=== PATIENT | female | born 1995 | race Caucasian/White ===

== ENCOUNTER 2016-04-16 21:20 | Outpatient (CLI) | payer MEDICAID ==
[~2016-04-16] VITALS: Ht 157.5 cm; Wt 90.5 kg
[~2016-04-16 21:20] MED LIST: FERR256T PO; PREN-46 PO
[2016-04-16 22:12] VITALS: Ht 157.5 cm; Wt 90.5 kg
[2016-04-16 22:14] VITALS: BP 133/85; RESP 16
[2016-04-16 22:19] LABS: ADD UMIC YES; URINE BILIRUBIN (Dip) NEGATIVE (NEGATIVE); URINE BLOOD (Dip) TRACE (NEGATIVE); URINE COLOR LT. YELLOW (YELLOW); URINE GLUCOSE (Dip) NEGATIVE (NEGATIVE); URINE KETONES (Dip) NEGATIVE (NEGATIVE); URINE LEUKOCYTE ESTERASE (Dip) 3+ (NEGATIVE); URINE NITRITE (Dip) NEGATIVE (NEGATIVE); URINE TOTAL PROTEIN (Dip) NEGATIVE (NEGATIVE); URINE UROBILINOGEN (Dip) 0.2 E.U./dL (0.1-1.0)
[2016-04-16 23:37] LABS: BACTERIA,URINE MODERATE; SQUAMOUS EPITHELIAL CELL,UR MODERATE
--- NOTE | 2016-04-16 23:49 | RADRPT ---
PROCEDURE: OB ultrasound for biophysical profile CLINICAL INDICATION: Labor. TECHNIQUE: Multiple sonographic images of the gravid uterus performed. The images were reviewed on a PACS workstation. COMPARISON: 03/24/2016 FINDINGS: A single live intrauterine is identified with heart rate of 143 bpm. Fet us is in a breech presentation. Placenta is located anterior. Biophysical profile: breathing movement = 2/2 tone = 2/2 motion = 2/2 KATHERINE = 2/2 KATHERINE = 10.6 cm. IMPRESSION: 1. Single live intrauterine gestation. 2. Biophysical profile = 8/8. 3. KATHERINE = 10.6 cm. 4. Breech presentation. RPTAT: HMVK .Daron Madrgial MD, Date Time Electronically viewed and signed by .Daron Madrigal MD, MD on 04/16/2016 23:49 .K/
--- NOTE | 2016-04-17 00:05 | QN ---
Documentation Comment 21-year-old with IUP at 37 weeks and care with [facility] [place] presents with complaint of increased vaginal discharge questionable leaking of fluid for the last 3 days. She had a history of prior and was a scheduled for repeat at 39 weeks. She denies any abdominal pain or contractions. She also is complaining of decreased movement. She denies any vaginal bleeding or contractions. Physical examination: General appearance: A&O x3, in NAD Abdomen: Soft, gravid, no tenderness, no rebound tenderness no guarding no rigidity Fundal height consistent with gestational age NST: Category 1, no contraction the monitor seen Speculum examination: No leaking of fluid noted. Coccyx she is a greenish vaginal discharge consistent with Rossana vaginitis noted Nitrazine: Negative ROAM tests: Negative KATHERINE: 10.6 BPP:09/30 PROCEDURE: OB ultrasound for biophysical profile CLINICAL INDICATION: Labor. TECHNIQUE: Multiple sonographic images of the gravid uterus performed. The images were reviewed on a PACS workstation. COMPARISON: 03/24/2016 FINDINGS: A single live intrauterine is identified with heart rate of 143 bpm. Fetus is in a breech presentation. Placenta is located anterior. Biophysical profile: breathing movement = 2/2 tone = 2/2 motion = 2/2 KATHERINE = 2/2 KATHERINE = 10.6 cm. IMPRESSION: 1. Single live intrauterine gestation. 2. Biophysical profile = 8/8. 3. KATHERINE = 10.6 cm. 4. Breech presentation. RPTAT: HMVK Assessment: IUP at 37 weeks Increase vaginal discharge,, exam consistent with candidal vaginitis Patient was advised to take [id number] Monistat for the next 7 days No clear evidence of PROM Decreased movement, testing reassuring Breech presentation. History of 1. Scheduled for repeat at 39 weeks Patient was advised about strict kick counts and labor precautions and follow-up with her OB clinic in the next couple days and RTC triage as needed any other concerns Patient verbalized understanding THEE ESTEVEZ MD Apr 17, 2016 00:05
--- NOTE | 2016-04-17 00:17 | TRIAGE ---
OB Triage Datetime Report Generated by CPN: 04/17/2016 00:16 Datetime: 04/16/2016 23:57 Labor Evaluation Frequency: NONE Pattern: Normal: <= 5 Contractions in 10 Minutes Heart Rate FHR Baseline Rate: 135 FHR Baseline Changes: No Baseline Change Datetime: 04/16/2016 23:00 Labor Evaluation Frequency: NONE Pattern: Normal: <= 5 Contractions in 10 Minutes Heart Rate FHR Baseline Rate: 150 FHR Baseline Changes: No Baseline Change Variability: Moderate 6-25 bpm Datetime: 04/16/2016 22:09 Vaginal Exam Dilatation (cms): 0.0 Effacement (%): 0 Station: -4 Exam By: DR. ESTEVEZ Vaginal Bleeding: None Cervix, Consistency: Firm Cervix, Position: Posterior Datetime: 04/16/2016 22:00 Labor Evaluation Frequency: IRRITABILITY Monitor Mode: External Pattern: Normal: <= 5 Contractions in 10 Minutes Heart Rate FHR Baseline Rate: 135 Monitor Mode: External US FHR Baseline Changes: No Baseline Change Variability: Moderate 6-25 bpm Category: Category I Datetime: 04/16/2016 21:42 Stage of : OB Triage Datetime: 04/16/2016 21:40 Stage of : OB Triage Datetime: 04/16/2016 21:31 Monitor Mode: External Monitor Mode: External US Datetime: 04/16/2016 21:30 Assessment Type: Triage Maternal Assessment Level of Consciousness: Fully Conscious DTR's/Clonus: DTRs 2+; No Clonus Headache: Denies Blurred Vision: No Respiratory Effort: Unlabored; Regular Rhythm; Equal Expansion Breath Sounds, Left: Clear and Equal Breath Sounds, Right: Clear and Equal Nausea/Vomiting: Denies RUQ Epigastric Pain: Denies Lower Extremities Edema: None Upper Extremities Edema: None Facial Edema: None Fall Risk Assessment History of Falling: (0) No Secondary Diagnosis: (0) No Ambulatory Aid: (0) Bedrest/Nurse Assist IV Therapy: (0) No Gait: (0) Normal/Bedrest/Immobile Mental Status: (0) Oriented to Own Ability Fall Score: 0 Fall Risk Score Definition: No Risk: No action required Comment: PT. APPEARED C/O LEAKING X3DAYS, DENIES RECENT INTERCOURSE, ADMITS TO DECREASED MOV EMENT OVER THE LAST 2 DAYS. WHEN ABD PALPATED, KICK FELT Datetime: 04/16/2016 21:24 EGA: 37.0 Datetime: 04/16/2016 21:15 Time of Arrival: 04/16/2016 21:15 Arrived By: Ambulatory Arrived From: Home Chief Complaint: LEAKING AND LOWER ABD PAIN Movement: Decreased Contractions: Denies/Absent Rupture of Membranes: Unsure Vaginal Discharge: Present Recent Sexual Intercouse: Denies Abdominal Trauma: Not Applicable Patient Complaints: Other Time Provider Notified: 04/17/2016 21:50 Provider Notified: ZENAIDA Initial Plan: KEERTHI FREEMAN, CALL OB
== END 2016-04-17 00:08 | disposition home or self-care (01) ==
LOC: OBT 21:20 → L-D 21:21 → OBT 04-17 00:08
PROVIDERS: ATTEND Obstetrics & Gynecology
DX: O36.8130 Decreased fetal movements, third trimester, not applicable or unspecified (principal); O98.813 Other maternal infectious and parasitic diseases complicating pregnancy, third trimester; B37.3 Candidiasis of vulva and vagina; O32.1XX0 Maternal care for breech presentation, not applicable or unspecified; Z3A.37 37 weeks gestation of pregnancy
CPT/HCPCS: 76818; 81001; 84112; Z7500; 81003; G0463

== ENCOUNTER 2016-05-09 10:20 | Inpatient (IN) | payer MEDICAID ==
[~2016-05-09] VITALS: Ht 157.5 cm; Wt 92.3 kg
[2016-05-09 10:58] VITALS: Ht 157.5 cm; Wt 92.3 kg
[2016-05-09 10:59] VITALS: BP 115/73; PULSE 96; RESP 18
[2016-05-09] MEDS: LACTATED RINGER'S 1,000 ML IV SCH ×2 (11:06→12:30)
[2016-05-09 11:30] LABS: ADD SCAN DIFF NO
[2016-05-09] MEDS ORDERED: CARBOPROST 250 MCG INJ IM PRN ×2 (11:30→16:00)
[2016-05-09] MEDS ORDERED: METHYLERGONOVINE 0.2 MG INJ IM PRN ×2 (11:30→16:00)
[2016-05-09] MEDS ORDERED: OXYTOCIN 30 UNITS/LR 500 ML IV PRN ×2 (11:30→16:00)
[2016-05-09] MEDS ORDERED: OXYTOCIN 30 UNITS/LR 500 ML IV SCH (11:30)
[2016-05-09] MEDS ORDERED: MISOPROSTOL 200 MCG TAB PR PRN ×2 (11:30→16:00)
[2016-05-09] MEDS ORDERED: CLINDAMYCIN 900 MG/D5W (PMX) 50 ML IV SCH (11:30)
[2016-05-09 11:38] LABS: BASOPHILS % 0.1 % (0.0-2.0); EOSINOPHILS % 0.4 % (0.0-7.0); HEMATOCRIT 35.1 % (37.0-47.0); HEMOGLOBIN 11.8 g/dl (12.0-16.0); LYMPHOCYTES # 2.3 10^3/ul (0.8-2.9); LYMPHOCYTES % 31.5 % (15.0-51.0); MEAN CORPUSCULAR HEMOGLOBIN 30.5 pg (29.0-33.0); MEAN CORPUSCULAR HGB CONC 33.6 g/dl (32.0-37.0); MEAN CORPUSCULAR VOLUME 90.7 fl (82.0-101.0); MEAN PLATELET VOLUME 11.2 fl (7.4-10.4); MONOCYTE # 0.7 10^3/ul (0.3-0.9); MONOCYTES % 9.9 % (0.0-11.0); NEUTROPHIL # 4.1 10^3/ul (1.6-7.5); NEUTROPHILS % 57.1 % (39.0-77.0); PLATELET COUNT 201 10^3/UL (140-415); RED BLOOD COUNT 3.87 10^6/ul (4.20-5.40); RED CELL DISTRIBUTION WIDTH 13.2 % (11.5-14.5); WHITE BLOOD COUNT 7.2 10^3/ul (4.8-10.8)
[2016-05-09 11:48] LABS: INR 0.94; PROTIME 12.6 Sec (12.2-14.2)
[2016-05-09 11:49] LABS: PARTIAL THROMBOPLASTIN TIME 28.6 Sec (25.0-35.0)
[2016-05-09] MEDS ORDERED: METOCLOPRAMIDE 10 MG INJ ONE (12:33)
[2016-05-09] MEDS ORDERED: CITRIC ACID/NA CITRATE 30 ML CUP ONE (12:33)
[2016-05-09] MEDS ORDERED: FAMOTIDINE 20 MG INJ ONE (12:33)
[2016-05-09] MEDS ORDERED: morphine SULFATE/PF (10 MG/10 ML) INJ ONE (12:57)
[2016-05-09] MEDS ORDERED: FENTAnyl 50 MCG/ML VIAL ONE (12:58)
[2016-05-09] MEDS ORDERED: PHENYLephrine (100 MCG/ML) 5ML SYG ONE (13:11)
[2016-05-09] MEDS ORDERED: LACTATED RINGER'S 1,000 ML IV ONE (13:28)
[2016-05-09] MEDS ORDERED: CITRIC ACID/NA CITRATE 30 ML CUP PO ONE (13:30)
[2016-05-09] MEDS ORDERED: DIPHENHYDRAMINE 50 MG INJ IV PRN ×2 (13:30→15:00)
[2016-05-09] MEDS ORDERED: METOCLOPRAMIDE 10 MG INJ IV ONE (13:30)
[2016-05-09] MEDS ORDERED: HYDROmorphONE (0.2 MG/ML) 10ML SYG IV PRN (13:30)
[2016-05-09] MEDS ORDERED: PROCHLORPERAZINE 10 MG INJ IV PRN ×2 (13:30→15:00)
[2016-05-09] MEDS ORDERED: MEPERIDINE 25 MG INJ IV PRN (13:30)
[2016-05-09] MEDS ORDERED: FENTAnyl 50 MCG/ML VIAL IV PRN (13:30)
[2016-05-09] MEDS ORDERED: KETOROLAC 30 MG INJ IV PRN (13:30)
[2016-05-09] MEDS ORDERED: ONDANSETRON 4 MG INJ IV PRN ×2 (13:30→15:00)
[2016-05-09] MEDS ORDERED: FAMOTIDINE 20 MG INJ IV ONE (13:30)
[2016-05-09] MEDS ORDERED: OXYTOCIN 30 UNITS/LR 500 ML IV ONE (13:58)
--- NOTE | 2016-05-09 14:57 | OPR ---
DATE OF OPERATION: 05/09/2016 PREOPERATIVE DIAGNOSES: 1. Intrauterine at 39 weeks' gestation. 2. History of previous section. 3. Early labor. POSTOPERATIVE DIAGNOSES: 1. Intrauterine at 39 weeks' gestation. 2. History of previous section. 3. Early labor. OPERATION PERFORMED: Repeat transverse low cervical section. SURGEON: Jelly Miranda MD SOFTWARE REQUIREMENTS ENGINEER: David Shin MD ANESTHESIA: Spinal. ANESTHESIOLOGIST: Dr. Nix. FINDINGS: Live baby boy, with Apgars of 9 and 9. Baby weighed 3760 grams. DETAILS OF THE PROCEDURE: Under satisfactory spinal anesthesia, the patient was prepped and draped and placed in the supine position, tilted to the left. A Pfannenstiel incision was made, carried th rough the subcutaneous tissue. Bleeders were brought under control with electrocautery. Fascia was incised to the length of the incision. Rectus muscle was divided in the midline. Peritoneum was e xposed, entered through a transverse incision. Exploration of abdomen, a gravid uterus, normal-appe aring tubes and ovaries. Some scar between the right round ligament and anterior abdominal wall, wh ich was taken down with sharp dissection. Suture material was used, #0 chromic catgut. A bladder f lap was developed. A transverse incision was made in the lower segment of the uterus. Amniotic sac ruptured. Clear amniotic fluid noted. A live baby boy was delivered from an unengaged vertex. Na armando oropharyngeal suction was performed and the baby was handed to the team for immediate a ttention. The patient received 20 units of Pitocin. Placenta delivered manually intact. Uterine c avity was cleaned with a wet sponge and drainage established. Uterus was closed in 2 layers using M onocryl #1 in continuous fashion. Peritoneal cavity was irrigated with warm saline. Sponge, needle and instrument were reported to be correct. Abdominal peritoneum was closed with 2-0 chromic catgu t continuously. Rectus muscle was approximated with a few interrupted 2-0 chromic catgut. Fascia w as closed with #1 PDS in a continuous fashion. Subcutaneous tissue was approximated with 2-0 chromi c catgut and the skin was closed with celso. Estimated blood loss was 600 mL. Urine bag containe d 300 mL of clear urine. Patient tolerated procedure well and was transferred to the recovery room in good condition. Dictated By: JELLY MIRANDA MD HF/NTS Conf#: [id number] DID#: [id number]
[2016-05-09] MEDS ORDERED: ZOLPIDEM 5 MG TAB PO PRN (15:00)
[2016-05-09] MEDS ORDERED: HYDROmorphONE 1 MG/ML SYG IV PRN ×2 (15:00)
[2016-05-09] MEDS ORDERED: NALOXONE (0.4 MG/ML) INJ IV PRN (15:00)
--- NOTE | 2016-05-09 15:05 | HP ---
DATE OF ADMISSION: 05/09/2016 HISTORY OF PRESENT ILLNESS: This is a 21-year-old female G3, P1, T1, PT 0, SAB 0, IAB 1, L /1 admitted to [facility] at 39 weeks' gestation with a history of previous C-sect ion, being prepared to undergo a repeat transverse low cervical section. This patient has been under the care of the [facility]. Her course was not complicated with ge stational diabetes, -induced hypertension, or any other serious medical or surgical conditi on. GYNECOLOGIC HISTORY: Menarche at age 9, regular period, 28 to 29 days, lasting 4 or 5 days. Histo ry of total of 3 pregnancies including the present , 1 spontaneous and 1 previous section. PAST MEDICAL HISTORY: No other hospitalization has been recorded in the patient's . ALLERGIES: DENIES ALLERGY TO ANY KNOWN MEDICATION. SOCIAL HABITS: Denies smoking or drinking. FAMILY HISTORY: Unremarkable. REVIEW OF SYSTEMS: Within normal. PHYSICAL EXAMINATION: VITAL SIGNS: 5 feet 2, 203 pounds, total weight gain during the , 61 pounds Temperature 9 8.7, heart rate 91, respiration 18, blood pressure 130/83. HEAD, EARS, NOSE AND THROAT: Negative. NECK: Supple. No thyromegaly. LUNGS: Clear to P and A. HEART: Normal sinus rhythm, no murmur. BREASTS: Status compatible with state of the . No abnormal palpable mass. No nipple retr action or discharge. No axillary adenopathy and no supraclavicular adenopathy. ABDOMEN: Measures approximately 37 cm from symphysis pubis. heart rate in 150s, category 1. Occasional contractions less than 4 to 5 in 1 hour. PELVIC: Deferred. EXTREMITIES: No edema, no varicosities. IMPRESSION: 1. Intrauterine at 39 weeks' gestation. 2. History of previous section undergoing a repeat . The patient is aware of the complication of the surgery, including bowel or bladder injury, infection, hemorrhage and hematoma, and she is willing to go ahead with this procedure. Dictated By: JELLY MIRANDA MD HF/NTS Conf#: [id number] DID#: [id number]
[2016-05-09] MEDS ORDERED: OXYCODONE/ACETAMINOPHEN (5/325) TAB PO PRN (16:00)
[2016-05-09] MEDS ORDERED: ACETAMINOPHEN/CODEINE #3 TAB PO PRN (16:00)
[2016-05-09] MEDS ORDERED: CEFAZOLIN 1 GM/50 ML (PMX) 50 ML IVPB SCH ×2 (16:00→16:30)
[2016-05-09 17:00] VITALS: BP 118/77; PULSE 95; RESP 20
[2016-05-09] MEDS: OXYTOCIN 30 UNITS/LR 500 ML IV SCH ×2 (17:16→20:46)
[2016-05-09] MEDS ORDERED: CLINDAMYCIN 900 MG/D5W (PMX) 50 ML IVPB ONE ×2 (17:30→20:00)
[2016-05-09 19:45] VITALS: BP 114/71; PULSE 102; RESP 18
[2016-05-10 00:30] VITALS: BP 102/62; RESP 18
[2016-05-10] MEDS: OXYTOCIN 30 UNITS/LR 500 ML IV SCH ×2 (01:33→03:56)
[2016-05-10 04:00] VITALS: BP 112/78; RESP 18
[2016-05-10] MEDS: KETOROLAC 30 MG INJ IV PRN ×2 (05:02→11:57)
[2016-05-10] MEDS: LACTATED RINGER'S 1,000 ML IV SCH (05:46)
[2016-05-10 07:42] LABS: ADD SCAN DIFF NO
[2016-05-10 07:46] LABS: BASOPHILS % 0.2 % (0.0-2.0); EOSINOPHILS # 0.1 10^3/ul (0.0-0.5); EOSINOPHILS % 0.6 % (0.0-7.0); HEMATOCRIT 31.7 % (37.0-47.0); HEMOGLOBIN 10.4 g/dl (12.0-16.0); LYMPHOCYTES % 18.3 % (15.0-51.0); MEAN CORPUSCULAR HGB CONC 32.8 g/dl (32.0-37.0); MEAN CORPUSCULAR VOLUME 91.4 fl (82.0-101.0); MEAN PLATELET VOLUME 11.3 fl (7.4-10.4); MONOCYTES % 9.5 % (0.0-11.0); NEUTROPHIL # 7.6 10^3/ul (1.6-7.5); NEUTROPHILS % 70.9 % (39.0-77.0); PLATELET COUNT 165 10^3/UL (140-415); RED BLOOD COUNT 3.47 10^6/ul (4.20-5.40); WHITE BLOOD COUNT 10.7 10^3/ul (4.8-10.8)
[2016-05-10 08:00] VITALS: BP 102/58; PULSE 89; RESP 18
[2016-05-10] MEDS ORDERED: INFLUENZA VIRUS VACCINE 0.5 ML SYG IM* ONE (09:00)
[2016-05-10] MEDS: SENNA/DOCUSATE NA (8.6MG/50MG) TAB PO SCH ×2 (09:25→21:21)
--- NOTE | 2016-05-10 09:39 | PN ---
Date/Time of Note Date/Time of Note DATE: 05/10/16 TIME: 09:36 OB Subjective Subjective Subjective Post day 1 VS stable, afebrile, abdomen soft incision dry bowel sounds present extremities normal IV discontinue ambulation recommended Laboratory Tests Test 05/09/16 10:50 05/10/16 06:15 Activated Partial Thromboplast Time 28.6Sec Basophils # 0.010^3/ul 0.010^3/ul Basophils % 0.1% 0.2% Eosinophils # 0.010^3/ul 0.110^3/ul Eosinophils % 0.4% 0.6% Hematocrit 35.1% 31.7% Hemoglobin 11.8g/dl 10.4g/dl INR International Normalized Ratio 0.94 Lymphocytes # 2.310^3/ul 2.010^3/ul Lymphocytes % 31.5% 18.3% Mean Corpuscular Hemoglobin 30.5pg 30.0pg Mean Corpuscular Hemoglobin Concent 33.6g/dl 32.8g/dl Mean Corpuscular Volume 90.7fl 91.4fl Mean Platelet Volume 11.2fl 11.3fl Monocytes # 0.710^3/ul 1.010^3/ul Monocytes % 9.9% 9.5% Neutrophils # 4.110^3/ul 7.610^3/ul Neutrophils % 57.1% 70.9% Nucleated Red Blood Cells # 0.010^3/ul 0.010^3/ul Nucleated Red Blood Cells % 0.0/100WBC 0.0/100WBC Platelet Count 35917^3/UL 56758^3/UL Prothrombin Time 12.6Sec Prothrombin Time Ratio 1.0 Rapid Plasma Reagin NONREACTIVE Red Blood Count 3.8710^6/ul 3.4710^6/ul Red Cell Distribution Width 13.2% 13.0% White Blood Count 7.210^3/ul 10.710^3/ul Current Medications Medications (Trade) Dose Ordered Sig/Arcadio Route PRN Reason Start Time Stop Time Status Last Admin Dose Admin Lactated Ringer's 1,000 ml @ 125 mls/hr Q8H IV 05/09/16 11:06 05/10/16 05:46 Clindamycin HCl/ Dextrose 50 ml @ 50 mls/hr ONCE IV 05/09/16 11:30 05/09/16 16:07 DC Oxytocin/Lactated Ringer's 500 ml @ 125 mls/hr ONCE IV 05/09/16 11:30 05/09/16 16:08 DC 05/09/16 15:17 Oxytocin/Lactated Ringer's 500 ml @ 0 mls/hr ONCE PRN IV For Hemorrhage Management 05/09/16 11:30 05/09/16 16:07 DC Methylergonovine Maleate (Methergine) 0.2 mg ONCE PRN IM VAGINAL BLEEDING 05/09/16 11:30 05/09/16 16:08 DC Carboprost Tromethamine (Hemabate) 250 mcg ONCE PRN IM VAGINAL BLEEDING 05/09/16 11:30 05/09/16 16:07 DC Misoprostol (Cytotec) 1,000 mcg ONCE PRN GA VAGINAL BLEEDING 05/09/16 11:30 05/09/16 16:08 DC Citric Acid/ Sodium Citrate (Bicitra) 30 ml STK-MED ONCE .ROUTE 05/09/16 12:33 05/09/16 12:34 DC Famotidine (Pepcid Iv) 20 mg STK-MED ONCE .ROUTE 05/09/16 12:33 05/09/16 12:34 DC Metoclopramide HCl (Reglan) 10 mg STK-MED ONCE .ROUTE 05/09/16 12:33 05/09/16 12:34 DC Morphine Sulfate (Duramorph) 10 mg STK-MED ONCE .ROUTE 05/09/16 12:57 05/09/16 12:58 DC Fentanyl (Sublimaze) 100 mcg STK-MED ONCE .ROUTE 05/09/16 12:58 05/09/16 12:59 DC Phenylephrine HCl (Dilip-Synephrine Inj Syg) 500 mcg STK-MED ONCE .ROUTE 05/09/16 13:11 05/09/16 13:12 DC Hydromorphone HCl (Dilaudid (Rec)) 0.4 mg PACU ORDER PRN IV PAIN 05/09/16 13:30 05/09/16 16:08 DC Fentanyl (Sublimaze) 25 mcg PACU ORDER PRN IV PAIN 05/09/16 13:30 05/09/16 16:08 DC Ketorolac Tromethamine (Toradol) 30 mg PACU ORDER PRN IV PAIN 05/09/16 13:30 05/09/16 16:08 DC Ondansetron HCl (Zofran Inj) 4 mg PACU ORDER PRN IV NAUSEA AND/OR VOMITING 05/09/16 13:30 05/09/16 16:08 DC Prochlorperazine (Compazine Inj) 5 mg PACU ORDER PRN IV NAUSEA AND/OR VOMITING 05/09/16 13:30 05/09/16 16:08 DC Meperidine HCl (Demerol) 25 mg PACU ORDER PRN IV POST-OP RIGORS 05/09/16 13:30 05/09/16 16:08 DC Diphenhydramine HCl 25 mg 25 mg PACU ORDER PRN IV PRURITUS 05/09/16 13:30 05/09/16 16:07 DC 05/09/16 15:15 Lactated Ringer's (Lr) 1,000 ml @ 1,000 mls/hr Q1H ONCE IV 05/09/16 13:28 05/09/16 14:27 DC Citric Acid/ Sodium Citrate (Bicitra) 30 ml pre-procedure ONCE PO 05/09/16 13:30 05/09/16 13:31 DC 05/09/16 12:44 Famotidine (Pepcid Iv) 20 mg pre-procedure ONCE IV 05/09/16 13:30 05/09/16 13:31 DC 05/09/16 12:45 Metoclopramide HCl 10 mg 10 mg ONCE ONCE IV 05/09/16 13:30 05/09/16 13:31 DC 05/09/16 12:43 Oxytocin/Lactated Ringer's 500 ml @ ud STK-MED ONCE IV 05/09/16 13:58 05/09/16 13:59 DC Naloxone HCl (Narcan) 0.1 mg Q2M PRN IV FOR RESP RATE 8 OR LESS 05/09/16 15:00 05/10/16 13:07 Ketorolac Tromethamine (Toradol) 30 mg Q6H PRN IV PAIN 05/09/16 15:00 05/10/16 13:07 05/10/16 05:02 Hydromorphone HCl (Dilaudid) 0.2 mg Q3H PRN IV PAIN LEVEL 1-5 05/09/16 15:00 05/10/16 13:07 Hydromorphone HCl (Dilaudid) 0.4 mg Q3H PRN IV PAIN LEVEL 6-10 05/09/16 15:00 05/10/16 13:07 Diphenhydramine HCl (Benadryl) 25 mg Q6H PRN IV ITCHING 05/09/16 15:00 05/10/16 13:07 Ondansetron HCl (Zofran Inj) 4 mg Q6H PRN IV NAUSEA AND/OR VOMITING 05/09/16 15:00 05/10/16 13:07 Prochlorperazine (Compazine Inj) 10 mg ONCE PRN IV NAUSEA AND/OR VOMITING 05/09/16 15:00 05/10/16 13:07 Zolpidem Tartrate (Ambien) 5 mg HS MAY REPEAT X 1 PRN PO INSOMNIA 05/09/16 15:00 05/10/16 13:07 Miscellaneous Information (* Miscellaneous Pharmacy Order) Duramorph: 0.2 mg Spi... GIVEN XX 05/09/16 15:00 05/09/16 16:08 DC Acetaminophen/ Codeine Phosphate (Tylenol No.3) 1 tab Q4H PRN PO PAIN LEVEL 4-6 05/09/16 16:00 Acetaminophen/ Codeine Phosphate (Tylenol No.3) 2 tab Q4H PRN PO PAIN LEVEL 7-10 05/09/16 16:00 Oxycodone/ Acetaminophen (Percocet (5/ 325)) 1 tab Q4H PRN PO PAIN LEVEL 4-6 05/09/16 16:00 Oxycodone/ Acetaminophen (Percocet (5/ 325)) 2 tab Q4H PRN PO PAIN LEVEL 7-10 05/09/16 16:00 Ibuprofen (Motrin) 600 mg Q6 PO 05/10/16 12:00 Simethicone (Mylicon) 160 mg Q8H PRN PO DISTENSION/GAS/BLOATING 05/09/16 16:00 Senna/Docusate Sodium (Senokot-S) 1 tab BID PO 05/10/16 09:00 05/10/16 09:25 Lanolin (Uvq-R-Iplwjo) 1 applic BEDSIDE MEDICATION PRN TOP BEDSIDE FOR SCOTT TO NIPPLES 05/09/16 16:00 Diphtheria/ Tetanus/Acell Pertussis 0.5 ml 0.5 ml ONCE ONCE IM* 05/12/16 09:00 05/12/16 09:01 Oxytocin/Lactated Ringer's 500 ml @ 0 mls/hr ONCE PRN IV For Hemorrhage Management 05/09/16 16:00 Methylergonovine Maleate (Methergine) 0.2 mg ONCE PRN IM VAGINAL BLEEDING 05/09/16 16:00 Carboprost Tromethamine (Hemabate) 250 mcg ONCE PRN IM VAGINAL BLEEDING 05/09/16 16:00 Misoprostol 1000 mcg 1,000 mcg ONCE PRN GA VAGINAL BLEEDING 05/09/16 16:00 Cefazolin Sodium 50 ml @ 100 mls/hr ONCE IVPB 05/09/16 16:00 05/09/16 16:29 Cancel Oxytocin/Lactated Ringer's 500 ml @ 125 mls/hr Q4H IV 05/09/16 15:56 05/10/16 01:33 Cefazolin Sodium 50 ml @ 100 mls/hr ONCE IVPB 05/09/16 16:30 05/09/16 17:21 DC Clindamycin HCl/ Dextrose 50 ml @ 50 mls/hr ONCE ONCE IVPB 05/09/16 17:30 05/09/16 17:55 DC Clindamycin HCl/ Dextrose (Cleocin 900 Mg/ D5W (Pmx)) 50 ml @ 50 mls/hr ONCE ONCE IVPB 05/09/16 20:00 05/09/16 20:59 DC 05/09/16 20:46 Influenza Virus Vaccine (Fluzone) 0.5 ml ONCE ONCE IM* 05/10/16 09:00 05/10/16 09:01 JELLY CARRILLO MD May 10, 2016 09:38
[2016-05-10 11:45] VITALS: BP 108/62; PULSE 80; RESP 18
[2016-05-10] MEDS: IBUPROFEN 600 MG TAB PO SCH ×3 (11:57→23:53)
[2016-05-10 15:58] VITALS: BP 118/68; PULSE 64; RESP 18
[2016-05-10] MEDS: ACETAMINOPHEN/CODEINE #3 TAB PO PRN (17:31)
[2016-05-10 19:35] VITALS: BP 111/84; PULSE 92; RESP 18
[2016-05-10] MEDS: OXYCODONE/ACETAMINOPHEN (5/325) TAB PO PRN (22:45)
[2016-05-11] MEDS: LANOLIN 7 GM TUBE TOP PRN (01:59)
[2016-05-11 03:55] VITALS: BP 100/50; PULSE 95; RESP 18
[2016-05-11] MEDS: IBUPROFEN 600 MG TAB PO SCH ×4 (05:33→23:39)
[2016-05-11 08:15] VITALS: BP 122/77; PULSE 89; RESP 18
[2016-05-11] MEDS: SENNA/DOCUSATE NA (8.6MG/50MG) TAB PO SCH ×2 (09:29→20:52)
--- NOTE | 2016-05-11 10:07 | QN ---
Documentation Comment POD #2 s/p repeat c/s. Doing well w/o complaints. +. T= 98.1, BP 122/77 Incision with celso and is clean, dry and intact. Lochia minimal. Ext 1+ edema. P: continue care with possible d/c tomorrow. DAVID FREY MD May 11, 2016 10:07
[2016-05-11] MEDS: OXYCODONE/ACETAMINOPHEN (5/325) TAB PO PRN (13:40)
[2016-05-11] MEDS ORDERED: NA PHOSPHATE/BIPHOS 133 ML ENEMA PR ONE (14:00)
[2016-05-11 16:14] VITALS: BP 103/56; PULSE 80; RESP 18
[2016-05-11 20:00] VITALS: BP 108/68; PULSE 94; RESP 18
[2016-05-12 04:00] VITALS: BP 108/58; PULSE 91; RESP 20
[2016-05-12] MEDS: IBUPROFEN 600 MG TAB PO SCH ×4 (05:38→23:44)
[2016-05-12 08:20] VITALS: BP 104/57; PULSE 82; RESP 17
[2016-05-12] MEDS ORDERED: DIPHTH/TET/ACEL PERTUSS (ADULT) 0.5 ML VIAL IM* ONE (09:00)
[2016-05-12] MEDS: SENNA/DOCUSATE NA (8.6MG/50MG) TAB PO SCH ×2 (09:35→20:32)
[2016-05-12] MEDS: OXYCODONE/ACETAMINOPHEN (5/325) TAB PO PRN ×2 (09:36→19:43)
--- NOTE | 2016-05-12 12:41 | PN ---
Date/Time of Note Date/Time of Note DATE: 05/12/16 TIME: 12:40 OB Subjective Subjective Subjective Post date 3 Afebrile, abdomen soft, incision dry, lochia normal, had normal bowel movement, extremity normal plan of a.m. discharge discussed with the patient. JELLY MIRANDA MD May 12, 2016 12:41
[2016-05-12] MEDS: ACETAMINOPHEN/CODEINE #3 TAB PO PRN (15:28)
[2016-05-12 16:27] VITALS: BP 107/64; PULSE 81; RESP 16
[2016-05-12 19:59] VITALS: BP 102/64; PULSE 88; RESP 18
[2016-05-13 04:00] VITALS: BP 119/74; PULSE 85; RESP 18
[2016-05-13] MEDS: IBUPROFEN 600 MG TAB PO SCH ×2 (05:50→12:47)
[2016-05-13 08:00] VITALS: BP 108/72; PULSE 80; RESP 18
[2016-05-13] MEDS: SENNA/DOCUSATE NA (8.6MG/50MG) TAB PO SCH (08:34)
[2016-05-13] MEDS: OXYCODONE/ACETAMINOPHEN (5/325) TAB PO PRN (08:34)
[2016-05-13] MEDS: LANOLIN 7 GM TUBE TOP PRN (08:34)
--- NOTE | 2016-05-13 09:59 | PD.PPDC ---
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
--- NOTE | 2016-05-13 10:04 | DS ---
Date/Time of Note Date/Time of Note DATE: 05/13/16 TIME: 10:01 Obstetrical Discharge Record Final Diagnosis Final Diagnosis: Term delivered Section Section: Repeat Condition on Discharge Physical Assessment Last Vitals: 21 years old female admitted to [facility] at 39 weeks gestation with a history of previous underwent a repeat C- section the outcome live baby boy 9 and, patient's postoperative course in the hospital uneventful did not spike temperature or having problem with bowel function or urination on the third postoperative day incision inspected found free of inflammation and infection patient was discharged home with a prescription of analgesic recommended to make appointment with the clinic in 4 days to discontinue celso. Voiding: Yes Bowel Movement: Yes Breast: Soft, non-tender, Filling Fundus: Firm Abdomen and Incision: Dry healing well free of inflammation Calf Tenderness: No Patient Condition: Good JELLY MIRANDA MD May 13, 2016 10:04
[2016-05-13 15:50] VITALS: BP 128/67; PULSE 82; RESP 18
== END 2016-05-13 16:05 | disposition home or self-care (01) | DRG 766 ==
LOC: L-D 10:20 → PP1 16:50
PROVIDERS: ADMIT Obstetrics & Gynecology; ATTEND Obstetrics & Gynecology
PROC: 10D00Z1 Extraction of Products of Conception, Low, Open Approach (ICD-10-PCS; principal; 2016-05-09 12:30)
DX: O34.211 Maternal care for low transverse scar from previous cesarean delivery (principal); Z37.0 Single live birth; Z3A.39 39 weeks gestation of pregnancy
CPT/HCPCS: 85025; 85610; 85730; 86592; 86850; 86900; 86901; 90686; 90715; 99464; J1200; J1885; J2274; J2370; J2405; J2590; J2765; J3010; J7120